=== PATIENT | male | born 1965 ===

== ENCOUNTER 2022-01-16 11:19 | Outpatient (CLI) | payer OTHER | END 2022-01-16 11:20 | disposition home or self-care (01) | LOC: RAD 11:19 | PROVIDERS: ATTEND Orthopaedic Surgery | DX: M25.531 Pain in right wrist (principal) ==

== ENCOUNTER 2023-02-16 17:11 | Outpatient (CLI) | payer OTHER | END 2023-02-16 17:15 | disposition home or self-care (01) | LOC: RAD 17:11 | PROVIDERS: ATTEND Internal Medicine | DX: J01.90 Acute sinusitis, unspecified (principal); J32.9 Chronic sinusitis, unspecified ==